=== PATIENT | female | born 2000 | race Caucasian/White ===

== ENCOUNTER 2021-03-06 09:54 | Day surgery (SDC) | payer BC, MEDICAID ==
[2021-03-06 10:27] VITALS: BMI 24.3
== END 2021-03-06 11:25 | disposition home or self-care (01) ==
LOC: CSHLD/OP 09:54
PROVIDERS: ATTEND Obstetrics & Gynecology
DX: O36.8130 Decreased fetal movements, third trimester, not applicable or unspecified (principal); Z3A.29 29 weeks gestation of pregnancy; Z88.1 Allergy status to other antibiotic agents; W50.0XXA Accidental hit or strike by another person, initial encounter
CPT/HCPCS: 99282

== ENCOUNTER 2021-03-10 22:54 | Day surgery (SDC) | payer BC, MEDICAID, OTHER ==
[2021-03-10 23:11] VITALS: BMI 24.7
[2021-03-11] MEDS ORDERED: hydrALAZINE 20 MG/ML VIAL SLOW IVP PRN (00:14)
[2021-03-11 01:05] LABS: SARS-CoV-2 NAA Rapid Test Not Detected (NotDetected)
[2021-03-11 01:22] LABS: Bilirubin Neg (Negative); Blood, Urine Negative (Negative); Clarity Clear (Clear); Glucose, Urine (Dipstick) Normal (Negative); Ketone, Urine Negative (Negative); Leukocyte Negative (Negative); Nitrite Negative (Negative); Protein, Urine (Dipstick) Negative (Neg-Trace); Urobilinogen Normal mg/dL (Less than 2)
[2021-03-11 01:23] LABS: Urine Culture Reflex No No
[2021-03-11 01:32] LABS: Bacteria/HPF Rare-Few HPF (None Seen); RBC/HPF 0-3 HPF (0-3); Squamous Epithelial 0-3 HPF (0-3); WBC/HPF 0-3 HPF (0-3)
== END 2021-03-11 02:45 | disposition home or self-care (01) ==
LOC: CSHLD/OP 22:54
PROVIDERS: ATTEND Obstetrics & Gynecology
DX: O99.891 Other specified diseases and conditions complicating pregnancy (principal); M54.50 Low back pain, unspecified; R10.2 Pelvic and perineal pain; R51.9 Headache, unspecified; Z3A.29 29 weeks gestation of pregnancy; Z88.1 Allergy status to other antibiotic agents; Z20.822 Contact with and (suspected) exposure to COVID-19
CPT/HCPCS: 0240U; 81001; 87480; 87510; 87660; 99285

== ENCOUNTER 2021-03-19 15:25 | Emergency (ER) | payer BC, OTHER | END 2021-03-19 16:02 | disposition home or self-care (01) | LOC: CSHERS 15:25 | DX: O98.52 Other viral diseases complicating childbirth (principal); U07.1 COVID-19; O99.891 Other specified diseases and conditions complicating pregnancy; R10.9 Unspecified abdominal pain; Z3A.33 33 weeks gestation of pregnancy | CPT/HCPCS: 93005; 93010; 99284 ==

== ENCOUNTER 2021-03-19 16:01 | Day surgery (SDC) | payer BC, MEDICAID ==
[2021-03-19 16:14] VITALS: BMI 24.7
== END 2021-03-19 18:05 | disposition home or self-care (01) ==
LOC: CSHLD/OP 16:01
PROVIDERS: ATTEND Obstetrics & Gynecology
DX: O36.8130 Decreased fetal movements, third trimester, not applicable or unspecified (principal); O98.513 Other viral diseases complicating pregnancy, third trimester; U07.1 COVID-19; Z3A.30 30 weeks gestation of pregnancy; Z88.1 Allergy status to other antibiotic agents
CPT/HCPCS: 99282

== ENCOUNTER 2021-03-23 14:25 | Day surgery (SDC) | payer BC, OTHER ==
[2021-03-23 15:05] VITALS: BMI 24.9
[2021-03-23] MEDS ORDERED: hydrALAZINE 20 MG/ML VIAL SLOW IVP PRN (16:35)
== END 2021-03-23 16:36 | disposition home or self-care (01) ==
LOC: CSHLD/OP 14:25 → EDSTATUS 14:28 → CSHLD/OP 16:36
PROVIDERS: ATTEND Obstetrics & Gynecology
DX: O98.513 Other viral diseases complicating pregnancy, third trimester (principal); U07.1 COVID-19; O99.343 Other mental disorders complicating pregnancy, third trimester; F43.0 Acute stress reaction; Z3A.31 31 weeks gestation of pregnancy; Z88.1 Allergy status to other antibiotic agents
CPT/HCPCS: 99282

== ENCOUNTER 2021-04-10 15:12 | Inpatient (IN) | payer BC, OTHER ==
[~2021-04-10 15:12] MED LIST: Bupivacaine 0.25% HCL 30 ML VIAL ONE
[2021-04-10 15:58] VITALS: BMI 25.5
[2021-04-10 18:02] LABS: Anisocytosis SLIGHT = 6-15 cells (100X) (0-5/hpf); Band 1 % (5-11); Hemoglobin 7.6 g/dL (12.0-15.5); Hypochromia SLIGHT = 6-15 cells (100X) (0-5/hpf); Lymphocytes 11 % (21-51); MDiff Complete? YES; Mean Corpuscular HGB CONC 31.4 g/dL (32.0-36.0); Mean Corpuscular Hemoglobin 22.2 pg (27.0-33.0); Mean Corpuscular Volume 70.6 fl (81.6-98.3); Mean Platelet Volume 11.4 fl (7.4-10.4); Microcytosis MODERATE=15-30 cells (100X) (0-5/hpf); Monocytes 4 % (0-10); Neutrophil 84 % (42-75); Platelet Count 235 10x3/uL (150-450); Platelet Morphology Comment Appears Adequate; Polychromasia SLIGHT = 2-3 cells (100X) (0-2/hpf); RBC Distribution Width 17.4 % (11.5-14.5); Red Blood Cell (RBC) Count 3.43 10x6/uL (3.90-5.03); Stomatocytes SLIGHT = 2-5 cells (100X) (0-1/hpf); Tear Drops SLIGHT = 2-5 cells (100X) (0-1/hpf); White Blood Cell (WBC) Count 13.7 10x3/uL (3.5-10.5)
[2021-04-10] MEDS: Betamet Acet/Betamet Na Ph 30 MG/5 ML VIAL ONE (18:41)
[2021-04-10 19:46] LABS: SARS-CoV-2 NAA Rapid Test DETECTED (NotDetected)
[2021-04-10 21:43] LABS: Hemoglobin 7.7 g/dL (12.0-15.5); Mean Corpuscular HGB CONC 30.6 g/dL (32.0-36.0); Mean Corpuscular Hemoglobin 21.9 pg (27.0-33.0); Mean Corpuscular Volume 71.8 fl (81.6-98.3); Mean Platelet Volume 10.6 fl (7.4-10.4); Platelet Count 231 10x3/uL (150-450); RBC Distribution Width 17.2 % (11.5-14.5); Red Blood Cell (RBC) Count 3.51 10x6/uL (3.90-5.03); White Blood Cell (WBC) Count 12.9 10x3/uL (3.5-10.5)
[2021-04-10 22:13] LABS: Hep B Surf Ag Non-Reactive S/CO (NonReactive)
[2021-04-10 22:14] LABS: Syphilis Antibody Nonreactive (Nonreactive); Syphilis Antibody Index 0.05 S/CO (<1.00 Non-Reactive)
[2021-04-10 22:52] LABS: HIV (1/2) Antibody/Antigen Non-Reactive (NonReactive); HIV 1/2 INDEX 0.14 S/CO (<1.00)
[2021-04-11] MEDS ORDERED: diphenhydrAMINE 25 MG CAP PO SCH ×2 (05:00→09:00)
[2021-04-11] MEDS ORDERED: Acetaminophen 325 MG TAB PO SCH ×2 (05:00→09:00)
[2021-04-11] MEDS ORDERED: Acetaminophen 325 MG TAB PO PRN (08:46)
[2021-04-11] MEDS ORDERED: Calcium Carbonate 500 MG ChewTAB PO PRN (08:48)
[2021-04-11] MEDS: Prenatal Vitamin 1 TAB PO SCH (09:02)
[2021-04-11] MEDS ORDERED: Promethazine 25 MG TAB PO PRN (14:47)
[2021-04-11] MEDS ORDERED: Betamet Acet/Betamet Na Ph 30 MG/5 ML VIAL IM SCH (18:30)
[2021-04-11] MEDS ORDERED: Butorphanol Tartrate 1 MG/ML VIAL SLOW IVP PRN (19:01)
[2021-04-11 20:18] LABS: Hemoglobin 8.5 g/dL (12.0-15.5); Mean Corpuscular HGB CONC 31.4 g/dL (32.0-36.0); Mean Corpuscular Hemoglobin 22.9 pg (27.0-33.0); Mean Platelet Volume 11.6 fl (7.4-10.4); Platelet Count 227 10x3/uL (150-450); RBC Distribution Width 19.3 % (11.5-14.5); Red Blood Cell (RBC) Count 3.71 10x6/uL (3.90-5.03); White Blood Cell (WBC) Count 18.4 10x3/uL (3.5-10.5)
[2021-04-12] MEDS ORDERED: Misoprostol 100 MCG TAB PO SCH (10:00)
[2021-04-12] MEDS ORDERED: Misoprostol 100 MCG TAB ONE (10:15)
[2021-04-12] MEDS: Ferrous Sulfate 325 MG TAB PO SCH (10:33)
[2021-04-12] MEDS: Prenatal Vitamin 1 TAB PO SCH (10:33)
[2021-04-12] MEDS ORDERED: NS w/ Oxytocin 30 units 500 ML IVPB SCH (21:00)
[2021-04-12] MEDS: Lactated Ringer's 1,000 ML IV SCH (22:42)
[2021-04-13] MEDS ORDERED: Penicillin G Potassium 5 MILL.UNITS VIAL ONE (10:35)
[2021-04-13] MEDS ORDERED: Penicillin G Potassium 5 MILL.UNITS in Sodium Chloride 0.9% 100 ML IVPB SCH (10:45)
[2021-04-13] MEDS ORDERED: Fentanyl 2 mcg/Bup 0.1% Cadd 100 ML ONE (11:16)
[2021-04-13] MEDS ORDERED: Misoprostol 200 MCG TAB ONE (12:02)
[2021-04-13] MEDS ORDERED: NS w/ Oxytocin 30 units 500 ML ONE (12:43)
[2021-04-13] MEDS ORDERED: Bisacodyl 10 MG SUPP PR PRN (14:28)
[2021-04-13] MEDS ORDERED: Measles/Mumps/Rubella 10 MCG/0.5 ML VIAL SC ONE (14:28)
[2021-04-13] MEDS ORDERED: Boostrix 0.5 ML (Tdap) VIAL IM ONE (14:28)
[2021-04-13] MEDS ORDERED: Preparation H Ointment 28 GM TUBE PR PRN (14:28)
[2021-04-13] MEDS ORDERED: Milk Of Magnesia 30 ML UDCUP PO PRN (14:28)
[2021-04-13] MEDS ORDERED: hydrALAZINE 20 MG/ML VIAL SLOW IVP PRN (14:28)
[2021-04-13] MEDS ORDERED: Zolpidem Tartrate 5 MG TAB PO PRN (14:28)
[2021-04-13] MEDS ORDERED: Lanolin Ointment 7 GM TUBE TOP PRN (14:28)
[2021-04-13] MEDS ORDERED: Promethazine HCl 25 MG/ML VIAL IM PRN (14:28)
[2021-04-13] MEDS ORDERED: Ondansetron PF 4 MG/2 ML Vial IVP PRN (14:28)
[2021-04-13] MEDS ORDERED: diphenhydrAMINE 25 MG CAP PO PRN (14:28)
[2021-04-13] MEDS ORDERED: Methylergonovine 0.2 MG/ML VIAL IM PRN (14:28)
[2021-04-13] MEDS ORDERED: Benzocaine-Menthol 82.5 ML CAN TOP PRN (14:28)
[2021-04-13] MEDS ORDERED: Varicella virus, LIVE 0.5 ML VIAL SC ONE (14:28)
[2021-04-13] MEDS ORDERED: NS w/ Oxytocin 30 units 500 ML IV SCH (14:30)
[2021-04-13] MEDS ORDERED: Penicillin G 2.5 MILL.units 50 ML IVPB SCH (14:45)
[2021-04-13] MEDS: Lactated Ringer's 1,000 ML IV SCH ×2 (15:32→15:33)
[2021-04-13] MEDS: Ferrous Sulfate 325 MG TAB PO SCH ×2 (15:33→18:03)
[2021-04-13] MEDS: Prenatal Vitamin 1 TAB PO SCH (15:33)
[2021-04-13] MEDS: Betamet Acet/Betamet Na Ph 30 MG/5 ML VIAL ONE (15:35)
[2021-04-13] MEDS: HYDROcodone/Acetaminophen 5/325 mg Tablet PO PRN ×2 (15:42→21:52)
[2021-04-13] MEDS: Ibuprofen 800 MG TAB PO SCH (21:31)
[2021-04-13] MEDS: Docusate 100 MG CAP PO SCH (21:31)
[2021-04-14] MEDS: HYDROcodone/Acetaminophen 5/325 mg Tablet PO PRN ×3 (03:50→12:21)
[2021-04-14 04:42] LABS: Hemoglobin 9.3 g/dL (12.0-15.5); Mean Corpuscular HGB CONC 30.8 g/dL (32.0-36.0); Mean Corpuscular Hemoglobin 22.6 pg (27.0-33.0); Mean Corpuscular Volume 73.5 fl (81.6-98.3); Mean Platelet Volume 10.8 fl (7.4-10.4); Platelet Count 212 10x3/uL (150-450); RBC Distribution Width 19.7 % (11.5-14.5); Red Blood Cell (RBC) Count 4.11 10x6/uL (3.90-5.03)
[2021-04-14] MEDS: Ibuprofen 800 MG TAB PO SCH ×2 (05:51→15:42)
[2021-04-14] MEDS: Prenatal Vitamin 1 TAB PO SCH (08:03)
[2021-04-14] MEDS: Ferrous Sulfate 325 MG TAB PO SCH ×2 (08:03→21:33)
[2021-04-14] MEDS: Docusate 100 MG CAP PO SCH ×2 (08:05→21:33)
[2021-04-14] MEDS: Acetaminophen 325 MG TAB PO PRN (21:32)
[2021-04-15] MEDS: Ibuprofen 800 MG TAB PO SCH ×2 (01:03→05:04)
[2021-04-15] MEDS: Ferrous Sulfate 325 MG TAB PO SCH (08:55)
[2021-04-15] MEDS: Prenatal Vitamin 1 TAB PO SCH (08:55)
[2021-04-15] MEDS: Docusate 100 MG CAP PO SCH (08:56)
[2021-04-15 10:00] VITALS: BP 115/71; TEMP 97.8
[2021-04-15] MEDS: Acetaminophen 325 MG TAB PO PRN (12:45)
== END 2021-04-15 13:45 | disposition home or self-care (01) | DRG 805 ==
LOC: CSHLD/OP 15:12 → CSHLD 22:10 → CSHPP 04-13 15:14
PROVIDERS: ADMIT Obstetrics & Gynecology; ATTEND Obstetrics & Gynecology
PROC: 8E0ZXY6 Isolation (ICD-10-PCS; 2021-04-10)
PROC: 30233N1 Transfusion of Nonautologous Red Blood Cells into Peripheral Vein, Percutaneous Approach (ICD-10-PCS; 2021-04-11)
PROC: 10E0XZZ Delivery of Products of Conception, External Approach (ICD-10-PCS; principal; 2021-04-13)
PROC: 0HQ9XZZ Repair Perineum Skin, External Approach (ICD-10-PCS; 2021-04-13)
PROC: 10907ZC Drainage of Amniotic Fluid, Therapeutic from Products of Conception, Via Natural or Artificial Opening (ICD-10-PCS; 2021-04-13)
PROC: 3E033VJ Introduction of Other Hormone into Peripheral Vein, Percutaneous Approach (ICD-10-PCS; 2021-04-13)
PROC: 3E0P7VZ Introduction of Hormone into Female Reproductive, Via Natural or Artificial Opening (ICD-10-PCS; 2021-04-13)
PROC: 3E0334Z Introduction of Serum, Toxoid and Vaccine into Peripheral Vein, Percutaneous Approach (ICD-10-PCS; 2021-04-14)
DX: O36.8130 Decreased fetal movements, third trimester, not applicable or unspecified (principal); U07.1 COVID-19; Z37.0 Single live birth; O98.52 Other viral diseases complicating childbirth; F98.8 Other specified behavioral and emotional disorders with onset usually occurring in childhood and adolescence; O99.344 Other mental disorders complicating childbirth; Z3A.34 34 weeks gestation of pregnancy; O99.02 Anemia complicating childbirth; D64.9 Anemia, unspecified; Z88.8 Allergy status to other drugs, medicaments and biological substances; O70.0 First degree perineal laceration during delivery; Z86.16 Personal history of COVID-19
CPT/HCPCS: 36415; 36430; 76819; 85007; 85027; 85461; 86780; 86850; 86900; 86901; 87077; 87081; 87340; 87389; 88307; 90384; 96372; J0702; J2540; J2590; J7120; P9016; Q0169; S0020; U0002

== ENCOUNTER 2021-08-08 13:46 | Emergency (ER) | payer BC, OTHER ==
[2021-08-08] MEDS ORDERED: Dexamethasone 10 MG/ML VIAL ONE (15:41)
== END 2021-08-08 15:43 | disposition home or self-care (01) ==
LOC: CSHERS 13:46
DX: J02.9 Acute pharyngitis, unspecified (principal)
CPT/HCPCS: 87081; 87430; 99283; J1100

== ENCOUNTER 2022-03-01 10:20 | Emergency (ER) | payer BC, OTHER | END 2022-03-01 11:20 | disposition left against medical advice (07) | LOC: CSHERS 10:20 | DX: Z53.21 Procedure and treatment not carried out due to patient leaving prior to being seen by health care provider (principal) ==

== ENCOUNTER 2022-09-12 09:18 | Day surgery (SDC) | payer BC, OTHER ==
[2022-09-12] MEDS ORDERED: hydrALAZINE 20 MG/ML VIAL SLOW IVP PRN (23:18)
== END 2022-09-12 11:37 | disposition home or self-care (01) ==
LOC: CSHLD/OP 09:18
PROVIDERS: ATTEND Obstetrics & Gynecology
DX: O47.1 False labor at or after 37 completed weeks of gestation (principal); Z3A.37 37 weeks gestation of pregnancy; Z88.1 Allergy status to other antibiotic agents

== ENCOUNTER 2022-09-13 13:13 | Day surgery (SDC) | payer BC, OTHER ==
[2022-09-13 13:35] VITALS: BMI 25.2
[2022-09-13] MEDS ORDERED: hydrALAZINE 20 MG/ML VIAL SLOW IVP PRN (14:59)
== END 2022-09-13 15:10 | disposition home or self-care (01) ==
LOC: CSHLD/OP 13:13
PROVIDERS: ATTEND Obstetrics & Gynecology
DX: O36.8130 Decreased fetal movements, third trimester, not applicable or unspecified (principal); Z3A.36 36 weeks gestation of pregnancy

== ENCOUNTER 2022-09-20 10:17 | Inpatient (IN) | payer BC, OTHER ==
[2022-09-20] MEDS ORDERED: Ondansetron PF 4 MG/2 ML Vial IVP PRN ×3 (10:54→23:30)
[2022-09-20] MEDS ORDERED: Ibuprofen 800 MG TAB PO PRN (10:54)
[2022-09-20] MEDS ORDERED: Methylergonovine 0.2 MG/ML VIAL IM PRN (10:54)
[2022-09-20] MEDS ORDERED: Butorphanol Tartrate 1 MG/ML VIAL SLOW IVP PRN (10:54)
[2022-09-20] MEDS ORDERED: Promethazine HCl 25 MG/ML VIAL IM PRN ×3 (10:54→23:30)
[2022-09-20] MEDS ORDERED: Tranexamic Acid 1,000 MG/10 ML VIAL IVP PRN (10:54)
[2022-09-20] MEDS ORDERED: Diphenoxylate HCl/Atropine Tablet PO PRN ×2 (10:54)
[2022-09-20] MEDS ORDERED: hydrALAZINE 20 MG/ML VIAL SLOW IVP PRN ×2 (10:54→23:30)
[2022-09-20] MEDS ORDERED: Misoprostol 200 MCG TAB PR PRN (10:54)
[2022-09-20] MEDS ORDERED: Carboprost 250 MCG/ML AMP IM PRN (10:54)
[2022-09-20] MEDS ORDERED: Lidocaine 1% (PF) 30 ML VIAL SC PRN (10:54)
[2022-09-20] MEDS ORDERED: Docusate 100 MG CAP PO PRN (10:54)
[2022-09-20] MEDS ORDERED: fentaNYL 50 mcg/mL 1 mL Vial SLOW IVP PRN (10:54)
[2022-09-20] MEDS ORDERED: HYDROcodone/Acetaminophen 5/325 mg Tablet PO PRN ×3 (10:54→23:30)
[2022-09-20] MEDS ORDERED: Acetaminophen 500 MG TAB PO PRN (10:54)
[2022-09-20] MEDS ORDERED: NS w/ Oxytocin 30 units 500 ML IV SCH ×4 (11:00→23:30)
[2022-09-20] MEDS ORDERED: Lactated Ringer's 1,000 ML IV SCH (11:00)
[2022-09-20] MEDS ORDERED: Lactated Ringer's 500 ML IV PRN (11:31)
[2022-09-20] MEDS ORDERED: diphenhydrAMINE 50 MG/ML VIAL IVP PRN (11:31)
[2022-09-20] MEDS ORDERED: ePHEDrine Sulfate 50 MG/10 ML VIAL SLOW IVP PRN (11:31)
[2022-09-20] MEDS ORDERED: Acetaminophen 325 MG TAB PO PRN (11:31)
[2022-09-20] MEDS ORDERED: Naloxone HCl 0.4 mg/ml Vial IVP PRN ×2 (11:31)
[2022-09-20] MEDS ORDERED: Moisturizing Cream (Eucerin) 113 GM JAR TOP PRN (11:31)
[2022-09-20 11:34] VITALS: BMI 27.4
[2022-09-20 11:42] LABS: Hemoglobin 8.9 g/dL (12.0-15.5); Mean Corpuscular Hemoglobin 22.2 pg (27.0-33.0); Mean Corpuscular Volume 69.3 fl (81.6-98.3); Platelet Count 188 10x3/uL (150-450); RBC Distribution Width 15.5 % (11.5-14.5); Red Blood Cell (RBC) Count 4.01 10x6/uL (3.90-5.03)
[2022-09-20] MEDS ORDERED: fentaNYL 2 mcg/Ropivacaine 0.2% Epidural 100 ML CADD EPIDURAL SCH (11:45)
[2022-09-20] MEDS ORDERED: Communication Order-Pharmacy FS SCH (11:45)
[2022-09-20 12:10] LABS: HBSAg Index 0.15 S/CO (0-0.99); Hep B Surf Ag - L&D Non-Reactive S/CO (NonReactive); Syphilis Antibody Nonreactive (Nonreactive); Syphilis Antibody Index 0.08 S/CO (<1.00 Non-Reactive)
[2022-09-20] MEDS ORDERED: fentaNYL/Ropivacaine Epidural 100 ML ONE (12:47)
[2022-09-20] MEDS ORDERED: diphenhydrAMINE 25 MG CAP PO PRN (23:30)
[2022-09-20] MEDS ORDERED: Boostrix 0.5 ML (Tdap) VIAL (>/=7 yrs of age) IM ONE (23:30)
[2022-09-20] MEDS ORDERED: Zolpidem Tartrate 5 MG TAB PO PRN (23:30)
[2022-09-20] MEDS ORDERED: Bisacodyl 10 MG SUPP PR PRN (23:30)
[2022-09-20] MEDS ORDERED: Measles/Mumps/Rubella 10 MCG/0.5 ML VIAL SC ONE (23:30)
[2022-09-20] MEDS ORDERED: Benzocaine-Menthol 82.5 ML CAN TOP PRN (23:30)
[2022-09-20] MEDS ORDERED: Varicella virus, LIVE 0.5 ML VIAL SC ONE (23:30)
[2022-09-20] MEDS ORDERED: Preparation H Ointment 28 GM TUBE PR PRN (23:30)
[2022-09-20] MEDS ORDERED: Lanolin Ointment 7 GM TUBE TOP PRN (23:30)
[2022-09-20] MEDS ORDERED: Milk Of Magnesia 30 ML UDCUP PO PRN (23:30)
[2022-09-21 04:34] LABS: Hemoglobin 7.6 g/dL (12.0-15.5); Mean Corpuscular HGB CONC 31.3 g/dL (32.0-36.0); Mean Corpuscular Volume 70.4 fl (81.6-98.3); Platelet Count 189 10x3/uL (150-450); RBC Distribution Width 15.5 % (11.5-14.5); Red Blood Cell (RBC) Count 3.45 10x6/uL (3.90-5.03); White Blood Cell (WBC) Count 14.8 10x3/uL (3.5-10.5)
[2022-09-21] MEDS: Ibuprofen 800 MG TAB PO SCH ×3 (05:48→22:57)
[2022-09-21] MEDS: Prenatal Vitamin 1 TAB PO SCH (08:12)
[2022-09-21] MEDS: Docusate 100 MG CAP PO SCH ×2 (08:12→21:37)
[2022-09-21] MEDS: Ferrous Sulfate 325 MG TAB PO SCH ×2 (08:12→19:18)
[2022-09-21] MEDS: HYDROcodone/Acetaminophen 5/325 mg Tablet PO PRN ×3 (10:58→20:44)
[2022-09-22] MEDS: HYDROcodone/Acetaminophen 5/325 mg Tablet PO PRN ×3 (02:43→17:17)
[2022-09-22] MEDS: Ibuprofen 800 MG TAB PO SCH ×2 (06:40→14:58)
[2022-09-22] MEDS: Docusate 100 MG CAP PO SCH (08:08)
[2022-09-22] MEDS: Ferrous Sulfate 325 MG TAB PO SCH ×2 (08:08→17:45)
[2022-09-22] MEDS: Prenatal Vitamin 1 TAB PO SCH (08:08)
[2022-09-22 08:11] VITALS: BP 111/68; TEMP 97.9
== END 2022-09-22 17:20 | disposition home or self-care (01) | DRG 807 ==
LOC: CSHLD 10:17 → CSHPP 22:00
PROVIDERS: ADMIT Obstetrics & Gynecology; ATTEND Obstetrics & Gynecology
PROC: 10E0XZZ Delivery of Products of Conception, External Approach (ICD-10-PCS; principal; 2022-09-20)
PROC: 3E0334Z Introduction of Serum, Toxoid and Vaccine into Peripheral Vein, Percutaneous Approach (ICD-10-PCS; 2022-09-21)
DX: O26.893 Other specified pregnancy related conditions, third trimester (principal); Z37.0 Single live birth; Z3A.37 37 weeks gestation of pregnancy; Z88.8 Allergy status to other drugs, medicaments and biological substances; Z88.3 Allergy status to other anti-infective agents; Z67.11 Type A blood, Rh negative
CPT/HCPCS: 36415; 51702; 85027; 85461; 86780; 86850; 86900; 86901; 87340; 90384; 96372; J2210; J2405; J2590